=== PATIENT | male | born 1965 | race Caucasian/White ===

== ENCOUNTER 2017-09-21 10:26 | Day surgery (SDC) | payer OTHER ==
[~2017-09-21] VITALS: Ht 172.7 cm; Wt 88.5 kg
[~2017-09-21 10:26] MED LIST: LISINOPRIL5 MG PO; PERCOCET 5/31 TABLET PO
[2017-09-21 11:09] VITALS: BP 186/91
[2017-09-21 16:25] VITALS: BP 186/91
[2017-09-21 17:08] VITALS: BP 160/90
== END 2017-09-21 17:15 | disposition home or self-care (01) ==
LOC: SDC 10:26
DX: M51.16 Intervertebral disc disorders with radiculopathy, lumbar region (principal); I10 Essential (primary) hypertension; F17.200 Nicotine dependence, unspecified, uncomplicated
CPT/HCPCS: 72020; 76000; J0330; J1100; J1885; J2250; J2405; J2710; J3010